=== PATIENT | female | born 1960 | race Caucasian/White ===

== ENCOUNTER 2017-05-31 11:12 | Inpatient (IN) | payer BC ==
[2017-05-31] MEDS ORDERED: Ipratropium 0.5MG/2.5ML NEB* 0.5 MG/2.5 ML NEB.SOLN INH ONE (11:26)
[2017-05-31] MEDS ORDERED: methylPREDNISolone 125 MG* 2 ML VIAL IV ONE (11:26)
[2017-05-31] MEDS ORDERED: Labetalol IV* 5 MG/ML 20 ML VIAL IV PUSH ONE ×3 (11:31→14:56)
[2017-05-31 11:59] LABS: ABS Basophils 0.1 10^3/ul (0-0.2); ABS Eosinophils 0.2 10^3/ul (0-0.6); ABS Lymphocytes 2.4 10^3/ul (1.0-4.8); ABS Monocytes 0.4 10^3/ul (0-0.8); ABS Neutrophils 5.1 10^3/ul (1.5-7.7); ABS Nucleated RBC 0 10^3/ul; Eosinophil % 2.4 % (0-6); Hematocrit 46 % (35-47); Hemoglobin 15.2 g/dl (12.0-16.0); Lymphocyte % 28.9 % (25-47); Mean Corpuscular HGB Conc 33 g/dl (31-36); Mean Corpuscular Hemoglobin 28 pg (27-31); Mean Corpuscular Volume 85 fL (80-97); Mean Platelet Volume 7 um3 (7.4-10.4); Nucleated Red Blood Cells % 0.2; Platelet Count 244 10^3/ul (150-450); Red Blood Count 5.37 10^6/ul (4.0-5.4); Red Cell Distribution Width 15 % (10.5-15); White Blood Count 8.2 10^3/ul (3.5-10.8)
--- NOTE | 2017-05-31 12:00 | RAD ---
INDICATION: Shortness of breath. COMPARISON: Comparison is made with a prior study from April 18, 2005. TECHNIQUE: A portable view of the chest was obtained. FINDINGS: Cardiac and mediastinal contours appear to be within normal limits. The lungs are hyperinflated and clear. No pleural effusion is seen. IMPRESSION: NO EVIDENCE FOR ACUTE DISEASE.
[2017-05-31 12:07] LABS: INR 0.94 (0.77-1.02)
[2017-05-31 12:14] LABS: EGFR Non-African American 87.4 (>60)
[2017-05-31] MEDS ORDERED: Iohexol 350* (CONTRAST) 500 ML MDV IV ONE (12:50)
[2017-05-31] MEDS ORDERED: Albuterol 2.5 MG/3 ML NEB.SOL* (0.083%) INH ONE (13:08)
--- NOTE | 2017-05-31 13:19 | RAD ---
Indication: Shortness of breath. Contrast: Administered 79.2 ml of OMNIPAQUE 350 mg/ml CTA of the chest was performed after IV contrast administration. Coronal and sagittal reconstructed images were obtained. Pulmonary arterial tree is well opacified. There are no evidence of filling defects to suggest pulmonary. The aorta demonstrates no aneurysmal dilatation. No evidence of aortic dissection is noted. The trachea and major bronchi appear patent. No pleural fluid is identified. Some atelectasis is noted in the lingula. No alveolar consolidation is noted. The axilla demonstrates no evidence of abnormal adenopathy. The visualized abdominal organs are unremarkable aside from hepatic steatosis. IMPRESSION: No definite evidence of pulmonary embolus is noted. No pulmonary lesions are noted. There is likely hepatic steatosis.
--- NOTE | 2017-05-31 13:39 | ED ---
Hollis Hernandez Gabriel, scribed for Jonnathan Frausto MD on 05/31/17 at 1121 . Shortness of Breath - HPI Summary HPI Summary: This patient is a 56 year old F presenting to [facility] with a chief complaint of SOB since 05/29/17. Patient reports nonproductive cough. Patient denies fever and LE edema. Patient states she has had a URI for a week. She states she was sent from her PCP after being told she was on the verge of having a stroke. She was diagnosed with borderline COPD a year ago and is currently trying to quit smoking and hasnt in 5 days. - History of Current Complaint Chief Complaint: EDShortnessOfBreath Time Seen by Provider: 05/31/17 11:20 Hx Obtained From: Patient Onset/Duration: Lasting Days - 2, Still Present Timing: Constant Current Severity: Moderate Dyspnea At: Rest Associated Signs & Symptoms: Negative - fever and edema, Cough (Nonproductive) - Allergy/Home Medications Allergies/Adverse Reactions: Allergies Allergy/AdvReac Type Severity Reaction Status Date / Time Penicillins Allergy Mild yeast Verified 05/31/17 11:18 infection Home Medications: Home Medications Levothyroxine TAB* [Synthroid TAB*] 175 mcg PO QAM 05/31/17 [History Confirmed 05/31/17] PMH/Surg Hx/FS Hx/Imm Hx Endocrine/Hematology History: Reports: Hx Thyroid Disease Cardiovascular History: Reports: Hx Hypertension Respiratory History: Reports: Hx Chronic Obstructive Pulmonary Disease (COPD) - verge of COPD EENT History: Denies: Hx Deafness Neurological History: Denies: Hx Dementia - Surgical History Surgery Procedure, Year, and Place: left wrist ganglion cyst removal. hysterectomy Infectious Disease History: Unable to Obtain/Confirm Infectious Disease History: Reports: Hx Hepatitis - HX HEP C - STATES CLEAR NOW Denies: History Other Infectious Disease, Traveled Outside the [place] in Last 30 Days - Family History Known Family History: Positive: Cardiac Disease - mother, Hypertension - mother , Respiratory Disease - father of COPD Negative: Diabetes, Renal Disease, Seizure Disorder, Blood Disorder - Social History Occupation: Employed Full-time Lives: With Family Alcohol Use: None Substance Use Type: Reports: None Smoking Status (MU): Current Every Day Smoker Type: Cigarettes Amount Used/How Often: 1 ppd Review of Systems Negative: Fever Positive: Shortness Of Breath, Cough Negative: Edema All Other Systems Reviewed And Are Negative: Yes Physical Exam Triage Information Reviewed: Yes Vital Signs On Initial Exam: Initial Vitals Temp Pulse Resp BP Pulse Ox 98.7 F 94 30 210/112 89 05/31/17 11:15 05/31/17 11:15 05/31/17 11:15 05/31/17 11:15 05/31/17 11:15 Vital Signs Reviewed: Yes Appearance: Positive: Well-Appearing, No Pain Distress Skin: Positive: Warm, Skin Color Reflects Adequate Perfusion Head/Face: Positive: Normal Head/Face Inspection Eyes: Positive: EOMI ENT: Positive: Normal ENT inspection Respiratory/Lung Sounds: Positive: Decreased Breath Sounds - both lung rankin. Negative: Rales, Stridor Cardiovascular: Positive: RRR. Negative: Murmur Abdomen Description: Positive: Nontender Musculoskeletal: Positive: Strength/ROM Intact. Negative: Edema Left, Edema Right Neurological: Positive: Sensory/Motor Intact, Alert, Oriented to Person Place, Time, CN Intact II-III, Normal Gait, Speech Normal Psychiatric: Positive: Normal - [place] Coma Scale Best Eye Response: 4 - Spontaneous Best Motor Response: 6 - Obeys Commands Best Verbal Response: 5 - Oriented Diagnostics - Vital Signs Vital Signs Temp Pulse Resp BP Pulse Ox 05/31/17 11:15 98.7 F 94 30 210/112 89 - Laboratory Lab Results: Lab Results 05/31/17 05/31/17 05/31/17 Range/Units 11:43 11:43 11:43 WBC 8.2 (3.5-10.8) 10^3/ul RBC 5.37 (4.0-5.4) 10^6/ul Hgb 15.2 (12.0-16.0) g/dl Hct 46 (35-47) % MCV 85 (80-97) fL MCH 28 (27-31) pg MCHC 33 (31-36) g/dl RDW 15 (10.5-15) % Plt Count 244 (150-450) 10^3/ul MPV 7 L (7.4-10.4) um3 Neut % (Auto) 62.3 (38-83) % Lymph % (Auto) 28.9 (25-47) % [place] % (Auto) 5.3 (1-9) % Eos % (Auto) 2.4 (0-6) % Baso % (Auto) 1.1 (0-2) % Absolute Neuts (auto) 5.1 (1.5-7.7) 10^3/ul Absolute Lymphs (auto) 2.4 (1.0-4.8) 10^3/ul Absolute Monos (auto) 0.4 (0-0.8) 10^3/ul Absolute Eos (auto) 0.2 (0-0.6) 10^3/ul Absolute Basos (auto) 0.1 (0-0.2) 10^3/ul Absolute Nucleated RBC 0 10^3/ul Nucleated RBC % 0.2 INR (Anticoag Therapy) (0.77-1.02) D-Dimer, Quantitative (Less Than 230) ng/mL Sodium 138 (133-145) mmol/L Potassium 4.1 (3.5-5.0) mmol/L Chloride 103 (101-111) mmol/L Carbon Dioxide 27 (22-32) mmol/L Anion Gap 8 (2-11) mmol/L BUN 11 (6-24) mg/dL Creatinine 0.69 (0.51-0.95) mg/dL Est GFR ( Amer) 112.4 (>60) Est GFR (Non-Af Amer) 87.4 (>60) BUN/Creatinine Ratio 15.9 (8-20) Glucose 97 (70-100) mg/dL Lactic Acid (0.5-2.0) mmol/L Calcium 9.6 (8.6-10.3) mg/dL Total Bilirubin 0.50 (0.2-1.0) mg/dL AST 21 (13-39) U/L ALT 29 (7-52) U/L Alkaline Phosphatase 109 H (34-104) U/L Troponin I 0.01 (<0.04) ng/mL B-Natriuretic Peptide 58 ( - 100) pg/mL Total Protein 7.7 (6.4-8.9) g/dL Albumin 4.1 (3.2-5.2) g/dL Globulin 3.6 (2-4) g/dL Albumin/Globulin Ratio 1.1 (1-3) 05/31/17 05/31/17 Range/Units 11:43 11:43 WBC (3.5-10.8) 10^3/ul RBC (4.0-5.4) 10^6/ul Hgb (12.0-16.0) g/dl Hct (35-47) % MCV (80-97) fL MCH (27-31) pg MCHC (31-36) g/dl RDW (10.5-15) % Plt Count (150-450) 10^3/ul MPV (7.4-10.4) um3 Neut % (Auto) (38-83) % Lymph % (Auto) (25-47) % Marathon % (Auto) (1-9) % Eos % (Auto) (0-6) % Baso % (Auto) (0-2) % Absolute Neuts (auto) (1.5-7.7) 10^3/ul Absolute Lymphs (auto) (1.0-4.8) 10^3/ul Absolute Monos (auto) (0-0.8) 10^3/ul Absolute Eos (auto) (0-0.6) 10^3/ul Absolute Basos (auto) (0-0.2) 10^3/ul Absolute Nucleated RBC 10^3/ul Nucleated RBC % INR (Anticoag Therapy) 0.94 (0.77-1.02) D-Dimer, Quantitative 383 H (Less Than 230) ng/mL Sodium (133-145) mmol/L Potassium (3.5-5.0) mmol/L Chloride (101-111) mmol/L Carbon Dioxide (22-32) mmol/L Anion Gap (2-11) mmol/L BUN (6-24) mg/dL Creatinine (0.51-0.95) mg/dL Est GFR ( Amer) (>60) Est GFR (Non-Af Amer) (>60) BUN/Creatinine Ratio (8-20) Glucose (70-100) mg/dL Lactic Acid 1.0 (0.5-2.0) mmol/L Calcium (8.6-10.3) mg/dL Total Bilirubin (0.2-1.0) mg/dL AST (13-39) U/L ALT (7-52) U/L Alkaline Phosphatase (34-104) U/L Troponin I (<0.04) ng/mL B-Natriuretic Peptide ( - 100) pg/mL Total Protein (6.4-8.9) g/dL Albumin (3.2-5.2) g/dL Globulin (2-4) g/dL Albumin/Globulin Ratio (1-3) Result Diagrams: 05/31/17 11:43 05/31/17 11:43 Lab Statement: Any lab studies that have been ordered have been reviewed, and results considered in the medical decision making process. - Radiology CXR Radiology Interpretation Completed By: Radiologist - No evidence for acute disease. ED physician has reviewed this report. - CT CTA Chest/ Thorax CT Interpretation Completed By: Radiologist - No definite evidence of pulmonary embolus is noted. No pulmonary lesions are noted. There is likely hepatic steatosis. ED physician has reviewed this report. - EKG 11:34 Cardiac Rate: Tachycardia EKG Rhythm: Sinus Tachycardia - at 104 BPM EKG Interpretation: No STEMI Re-Evaluation - Re-Evaluation First Eval Re-Evaluation Time: 13:10 Change: Improved Comment: She felt a little better after the neb, but then when walked to bathroom SOB again. Her bp improved with labetalol, but is back up in 190s again. Another neb and more labetalol ordered. Course/Dx - Course Course Of Treatment: 56 yr old with SOB, diminished breath sounds and hypertension. Neg Ct chest for PE. Admit for COPD and hypertensive urgency - Diagnoses Provider Diagnoses: COPD exacerbation, Hypertensive urgency - Physician Notifications Discussed Care of Patient With: Balbir Ross Time Discussed With Above Provider: 13:27 Instructed by Provider To: Admit As Observation - Critical Care Time Critical Care Time: 75-104 min Discharge - Discharge Plan Condition: Fair Disposition: ADMITTED TO [facility] Referrals: Robert Mckeon MD [Primary Care Provider] - The documentation as recorded by the Hollis gomez Gabriel accurately reflects the service I personally performed and the decisions made by , Jonnathan Frausto MD.
[2017-05-31] MEDS ORDERED: Mouth Piece, Nicotine* 1 EACH CARTRIDGE INH PRN (15:19)
[2017-05-31] MEDS ORDERED: Nicotine Inhaler* 10 MG AMP INH PRN (15:19)
[2017-05-31] MEDS ORDERED: hydrALAZINE IV* 20 MG/ML VIAL IV SLOW PU PRN ×2 (15:20→15:25)
[2017-05-31] MEDS ORDERED: Albuterol HFA INHALER* 8 gm MDI INH PRN (15:25)
[2017-05-31] MEDS ORDERED: Spiriva Inhaler DEVICE* 1 EACH DEVICE SCH (16:00)
[2017-05-31] MEDS ORDERED: Azithromycin IV(*) 500 MG in NS 0.9% 250 ML* 250 ML IVPB SCH (16:00)
[2017-05-31] MEDS: amLODIPine TAB* 5 MG PO SCH (17:59)
--- NOTE | 2017-05-31 19:49 | HP ---
CC: Robert Mckeon MD * HISTORY AND PHYSICAL: DATE OF ADMISSION: 05/31/17 PRIMARY CARE PROVIDER: Robert Mckeon MD ATTENDING PHYSICIAN: Pj oRss MD * (dictated by Christiane Milligan NP). CHIEF COMPLAINT: Shortness of breath for 2 days. HISTORY OF PRESENT ILLNESS: Ms. Arevalo is a 56-year-old female with a past medical history significant for COPD, hypertension, and a history of hepatitis C , who presented to the emergency room with complaints of 2 days of shortness of breath. The patient states that she has had upper respiratory symptoms for approximately a week with nasal congestion, runny nose and sneezing. She denies any fever, chills, chest pain. She reports a nonproductive cough. She reports shortness of breath at baseline, but feels that her shortness of breath has been worse with exertion recently. She denies any nausea, vomiting, diarrhea, urinary symptoms such as dysuria, urgency, or frequency. She states that she has been using her albuterol every 1 to 2 hours at home. Due to her increased use of albuterol, she decided to see her primary care provider before she ran out of albuterol. When she presented to her primary care provider, they told her to go to the emergency room for further evaluation. While in the emergency room, the patient received albuterol, Atrovent, labetalol IV x3 in addition to IV Solu-Medrol. She had a chest x-ray showing no evidence for acute disease. She was found to have an elevated D-dimer, had a CT of her chest showing no signs of a PE. She had an EKG showing a sinus tachycardia, rate of 104. Her labs were fairly unremarkable. She did have an ABG showing a pO2 of 76 and base excess of 3.6. The patient was noted to be significantly hypertensive while in the emergency room. Due to the patient's shortness of breath, the hospitalists were asked to evaluate the patient for admission. PAST MEDICAL HISTORY: 1. COPD. 2. Hypertension. 3. History of hepatitis C. 4. Hypothyroidism. PAST SURGICAL HISTORY: 1. Status post left wrist ganglion cyst removal. 2. Status post hysterectomy. HOME MEDICATIONS: Include: 1. Levothyroxine 175 mcg oral daily. 2. Albuterol HFA 2 puffs inhalation every 4 hours as needed for shortness of breath or wheeze. ALLERGIES: PENICILLIN. FAMILY HISTORY: The patient's parents, both had COPD and heart failure. She denies any family history of diabetes. Father with a history of lung cancer, a sister with a history of breast cancer, and a brother with a history of lymphoma. SOCIAL HISTORY: The patient reports smoking for the last 45 years, approximately 1 pack a day. She reports quitting 5 days ago. She reports occasional alcohol use. Denies recreational drug use. Her , Rudy Arevalo, will be her surrogate decision maker in the event she is unable to make decisions for herself. REVIEW OF SYSTEMS: I performed 11-point review of systems. All the pertinent positives and negatives are mentioned in the history of present illness. The remaining review of systems are negative. PHYSICAL EXAMINATION GENERAL APPEARANCE: The patient is alert, pleasant and appears to be in no acute distress. VITAL SIGNS: Temperature 98.7, heart rate 79, respiratory rate 14, O2 sat 94% on 2 L via nasal cannula, blood pressure 194/91. HEENT: Normocephalic, atraumatic. Pupils are equal and reactive to light. Extraocular movements are intact. NECK: Supple. RESPIRATORY: There is no accessory muscle use. The lungs are clear to auscultation with few expiratory wheezes noted. CARDIOVASCULAR: Regular rate and rhythm. S1 and S2 present. There are no murmurs, rubs or gallops heard. ABDOMEN: Soft, nontender, nondistended. There are bowel sounds present x4. EXTREMITIES: There is no lower extremity edema. DP and PT pulses are 2+ and symmetric. MUSCULOSKELETAL: There is no clubbing or cyanosis noted. The patient exhibits good strength in all extremities. NEUROLOGICAL: The patient is alert and oriented x4. Cranial nerves II through XII are grossly intact. PSYCHOLOGICAL: The patient is calm and cooperative. SKIN: There are no rashes or abnormalities seen. DIAGNOSTIC STUDIES/LABORATORY DATA: Sodium 138, potassium 4.1, chloride 103, CO2 of 27, BUN 11, creatinine 0.69, glucose 97. Alk phos 109. D-dimer 383. Troponin 0.01, 0.00. White blood cell count 8.2, hemoglobin 15.2, hematocrit 46 , platelet count 244,000. Influenza A and B, negative. ABG; pH 7.3, pCO2 of 43 , pO2 of 76, HCO3 of 27.6, O2 sat 97.4%, base excess 3.6. EKG shows a sinus tachycardia and a rate of 104. There are no previous EKGs for comparison. There are no acute signs of ischemia. Chest x-ray from today. Radiologist's impression: No evidence for acute disease. Chest, thoracic CTA from today. Radiologist's impression: No definite evidence of pulmonary embolus is noted. No pulmonary lesions are noted. There is likely hepatosteatosis. IMPRESSION: Ms. Arevalo is a 56-year-old female with past medical history significant for hypertension, hypothyroidism, and history of hepatitis C, who presented to the emergency room with complaints of shortness of breath for 2 days. She will be admitted as an observation for chronic obstructive pulmonary disease exacerbation and hypertension. ASSESSMENT/PLAN: 1. Chronic obstructive pulmonary disease exacerbation. The patient has expiratory wheezing on exam. Chest CTA shows no pulmonary embolism. I suspect her shortness of breath is secondary to chronic obstructive pulmonary disease exacerbation. She has been encouraged to quit smoking. She is not on any maintenance inhalers at home. I have started her on Dulera and Spiriva. In addition to the inhalers, the patient will have around the clock DuoNeb while awake in addition to be continued on prednisone. I will also give her mono- antibiotic therapy with azithromycin. She has been encouraged to stop smoking. 2. Hypertension. The patient has had significant hypertension in the emergency room with systolic blood pressures in the 90s to 200s. She received labetalol in the emergency room. I am going to start her on amlodipine and give her a dose now followed by another dose later today if she continues to be significantly elevated and also give her hydralazine as needed for systolic blood pressures greater than 185 and diastolic blood pressures greater than 110. I suspect the patient's hypertension is secondary to taking herself off her antihypertensives approximately a year ago when she felt that she no longer needed them. 3. Hypothyroidism. The patient will be continued on her home levothyroxine. 4. Fluids, electrolytes and nutrition. The patient will be on a heart-healthy diet. 5. Code status. Full code. 6. DVT prophylaxis. The patient is at high risk and will be on subcu heparin. 7. Disposition. Observation. TIME SPENT: Time for this admission was approximately 60 minutes, greater than half of that was spent with the patient discussing medications, past medical history and the events leading up to her arrival today and performing a physical examination. The case has been reviewed with the attending, Dr. Pj Ross, who agrees with the plan of care. Reviewed by DARLENE ANDREWS 06/07/17 1808 [id number]/[facility] #: [id number] MTDD
[2017-05-31] MEDS: Acetaminophen TAB* 325 MG PO PRN (19:59)
[2017-05-31] MEDS: Albuterol/Ipratropium NEB.SOL* Albuterol 2.5 MG/Ipratropium 0.5 MG 3 ML INH SCH (20:21)
[2017-05-31] MEDS: Mometasone/Formoter 100/5 MDI INH SCH (20:21)
[2017-05-31] MEDS: Heparin VIAL(*) 5000 UNITS/ML VIAL (FIVE THOUSAND) SUBCUT SCH (22:04)
[2017-06-01] MEDS: Albuterol/Ipratropium NEB.SOL* Albuterol 2.5 MG/Ipratropium 0.5 MG 3 ML INH SCH ×4 (02:56→19:24)
[2017-06-01] MEDS: Acetaminophen TAB* 325 MG PO PRN (03:44)
[2017-06-01] MEDS: Levothyroxine TAB* 175 MCG TAB PO SCH (05:49)
[2017-06-01] MEDS: Heparin VIAL(*) 5000 UNITS/ML VIAL (FIVE THOUSAND) SUBCUT SCH ×3 (05:50→22:12)
[2017-06-01] MEDS ORDERED: amLODIPine TAB* 5 MG PO ONE (08:54)
[2017-06-01] MEDS ORDERED: Ibuprofen TAB* 600 MG PO ONE (08:54)
[2017-06-01] MEDS: amLODIPine TAB* 5 MG PO SCH (09:09)
[2017-06-01] MEDS: predniSONE TAB* 50 MG PO SCH (09:09)
[2017-06-01] MEDS ORDERED: Albuterol 2.5 MG/3 ML NEB.SOL* (0.083%) INH PRN (09:29)
[2017-06-01] MEDS: Tiotropium CAP.INH* CAP.INH/18 MCG (USE ORDER SET !) INH SCH (09:50)
[2017-06-01] MEDS: Mometasone/Formoter 100/5 MDI INH SCH ×2 (09:50→19:24)
[2017-06-01] MEDS ORDERED: Lisinopril TAB* 10 MG PO SCH (10:00)
[2017-06-01] MEDS ORDERED: hydrALAZINE IV* 20 MG/ML VIAL IV SLOW PU PRN (11:48)
--- NOTE | 2017-06-01 14:05 | PN ---
Subjective Date of Service: 06/01/17 Interval History: Patient has continusing and worsening SOB overnight. Relief with inhalers. Patient reports audible wheezing which is improved with inhalers. Patient recently had oxygen flow rate increased. Patient has a DUPREE which she rates as 10/ 10 and frontal which was unresponsive to tylenol but responded to ibuprofen. Patient has continued URI symptoms but denied F/C, N/V, abdominal Pain, Diarrhea , constipation CP, Dysuria, back pain, or other pain. Family History: Unchanged from Admission Social History: Unchanged from Admission Past Medical History: Unchanged from Admission Objective Active Medications: Acetaminophen (Tylenol Tab*) 650 mg PO Q6H PRN PRN Reason: FEVER/PAIN Last Admin: 06/01/17 03:44 Dose: 650 mg Albuterol (Ventolin 2.5 Mg/3 Ml Neb.Shana*) 2.5 mg INH Q4H PRN PRN Reason: SOB/WHEEZING Albuterol/Ipratropium (Duoneb (Albuterol 2.5 Mg/Ipratropium 0.5 Mg)) 1 neb INH [id number] AWAKE [facility] Last Admin: 06/01/17 13:27 Dose: 1 neb Device (Nicotine Mouth Piece*) 1 each INH .USE WITH NICOTROL PRN PRN Reason: CRAVING Device (Tiotropium Inhaler Device*) 1 each .SEE ORDER .USE w/ SPIRIVA CAPS [facility] Heparin Sodium (Porcine) (Heparin Vial(*)) 5,000 units SUBCUT Q8HR [facility] Last Admin: 06/01/17 13:56 Dose: 5,000 units Hydralazine HCl (Apresoline Iv*) 10 mg IV SLOW PU Q6H PRN PRN Reason: BLOOD PRESSURE Last Admin: 06/01/17 12:15 Dose: 10 mg Azithromycin 500 mg/ Sodium (Chloride) 250 mls @ 250 mls/hr IVPB Q24H [facility] Last Admin: 05/31/17 18:00 Dose: 250 mls/hr Levothyroxine Sodium (Synthroid Tab*) 175 mcg PO 0600 [facility] Last Admin: 06/01/17 05:49 Dose: 175 mcg Lisinopril (Prinivil Tab*) 10 mg PO DAILY [facility] Last Admin: 06/01/17 10:33 Dose: 10 mg Mometasone Furoate/Formoterol Fumar (Dulera 100/5 Mdi*) 2 puff INH BID [facility] Last Admin: 06/01/17 09:50 Dose: Not Given Nicotine (Nicotine Inhaler*) 10 mg INH Q2H PRN PRN Reason: CRAVING Prednisone (Deltasone Tab*) 50 mg PO DAILY WITH MEAL [facility] Last Admin: 06/01/17 09:09 Dose: 50 mg Tiotropium Salley (Spiriva Cap.Inh*) 1 cap INH DAILY [facility] Last Admin: 06/01/17 09:50 Dose: Not Given Vital Signs - 8 hr 06/01/17 11:46 Temperature 97.9 F Pulse Rate 80 Respiratory 18 Rate Blood Pressure 178/73 (mmHg) O2 Sat by Pulse 93 Oximetry Oxygen Devices in Use Now: Nasal Cannula - 2L Appearance: Patient is a 56yo female who appears stated age and is sitting in the bed in [facility]. Eyes: No Scleral Icterus, PERRLA Ears/Nose/Mouth/Throat: NL Teeth, Lips, Gums, Clear Oropharnyx, Mucous Membranes Moist Neck: NL Appearance and Movements; NL JVP, Trachea Midline Respiratory: Symmetrical Chest Expansion and Respiratory Effort, - - Expiratory wheezes and prolonged expiratory phase throughout. Cardiovascular: NL Sounds; No Murmurs; No JVD, RRR, No Edema Abdominal: No Hepatosplenomegaly, - - BS present and normoactive. Non-tender. Moderately distended, no guarding. Lymphatic: No Cervical Adenopathy Extremities: No Edema, No Clubbing, Cyanosis Skin: No Rash or Ulcers, No Nodules or Sclerosis Neurological: Alert and Oriented x 3, NL Sensation, NL Muscle Strength and Tone , - - CN II-XII intact. Result Diagrams: 05/31/17 11:43 05/31/17 11:43 Additional Lab and Data: Lab Results Assess/Plan/Problems-Billing Assessment: Patient is a 56yo female with a PMH significant for COPD, HTN, and hepatitis C who presents with a COPD exacerbation and URI symptoms. Patient is admitted inpatient and has increasing O2 requirements from yesterday. - Patient Problems (1) COPD exacerbation Current Visit: Yes Status: Acute Code(s): J44.1 - CHRONIC OBSTRUCTIVE PULMONARY DISEASE W (ACUTE) EXACERBATION SNOMED Code(s): 704441778 Comment: Significant wheezing on exam, on 3L O2 which is increased from yesterday. URI symptoms, on no home inhalers. No known previous diagnosis of COPD. Quit smoking on 05/26, not craving or interested in pharmacologic aides. Continue prednisone, inhalers, and Azithromycin. Wean O2 as tolerated. (2) Hypertensive urgency Current Visit: Yes Status: Acute Code(s): I16.0 - HYPERTENSIVE URGENCY SNOMED Code(s): 207050793 Comment: BP up to 210/110 at admission. Started on amlodipine but got headaches. Started on Lisinopril 20mg PO daily. Mild improvement. Hydralazine PRN, will increase medications as needed. Previously on antihypertenive therapy but self- discontinued. (3) Headache Current Visit: Yes Status: Acute Code(s): R51 - HEADACHE SNOMED Code(s): 20154158 Comment: 02/28 and frontal, possibly due to amlodipine. Changed to Lisinopril, response to Ibuprofen x1. Tylenol standing. Currently asymptomatic. (4) URI (upper respiratory infection) Current Visit: Yes Status: Acute Code(s): J06.9 - ACUTE UPPER RESPIRATORY INFECTION, UNSPECIFIED SNOMED Code(s): 66582681 Comment: Rhinorrhea, sore throat, nasal congestion. No muscle aches or fevers. Not likely Flu, probably driving COPD exacerbation. Supportive care. (5) Full code status Current Visit: Yes Status: Acute Code(s): Z78.9 - OTHER SPECIFIED HEALTH STATUS SNOMED Code(s): 738291438 (6) DVT prophylaxis Current Visit: Yes Status: Acute Code(s): HPE7937 - SNOMED Code(s): 925247910 Comment: Heparin subQ. Status and Disposition: Patient is admitted inpatient. Will discharge when medically stable.
[2017-06-01] MEDS ORDERED: amLODIPine TAB* 5 MG PO SCH (16:00)
[2017-06-01] MEDS ORDERED: Azithromycin TAB* 250 MG PO SCH (16:00)
[2017-06-02] MEDS: Albuterol/Ipratropium NEB.SOL* Albuterol 2.5 MG/Ipratropium 0.5 MG 3 ML INH SCH ×3 (01:58→13:56)
[2017-06-02] MEDS: Levothyroxine TAB* 175 MCG TAB PO SCH (05:57)
[2017-06-02] MEDS: Heparin VIAL(*) 5000 UNITS/ML VIAL (FIVE THOUSAND) SUBCUT SCH ×2 (05:57→14:22)
[2017-06-02] MEDS: Tiotropium CAP.INH* CAP.INH/18 MCG (USE ORDER SET !) INH SCH (07:38)
[2017-06-02] MEDS: Mometasone/Formoter 100/5 MDI INH SCH (07:38)
[2017-06-02] MEDS ORDERED: Lisinopril TAB* 10 MG PO SCH (09:00)
[2017-06-02 09:04] LABS: ABS Basophils 0.1 10^3/ul (0-0.2); ABS Eosinophils 0 10^3/ul (0-0.6); ABS Neutrophils 9.6 10^3/ul (1.5-7.7); ABS Nucleated RBC 0 10^3/ul; Eosinophil % 0.3 % (0-6); Hematocrit 43 % (35-47); Hemoglobin 14.1 g/dl (12.0-16.0); Lymphocyte % 27.3 % (25-47); Mean Corpuscular HGB Conc 33 g/dl (31-36); Mean Corpuscular Hemoglobin 28 pg (27-31); Mean Corpuscular Volume 87 fL (80-97); Mean Platelet Volume 7 um3 (7.4-10.4); Nucleated Red Blood Cells % 0.1; Platelet Count 296 10^3/ul (150-450); Red Blood Count 4.99 10^6/ul (4.0-5.4); Red Cell Distribution Width 16 % (10.5-15); White Blood Count 14.8 10^3/ul (3.5-10.8)
[2017-06-02 09:11] LABS: EGFR Non-African American 75.9 (>60)
[2017-06-02] MEDS: predniSONE TAB* 50 MG PO SCH (09:54)
[2017-06-02 12:40] VITALS: BP 156/71
--- NOTE | 2017-06-03 16:50 | DS ---
CC: Dr. Robert Mckeon * DISCHARGE SUMMARY: DATE OF ADMISSION: 05/31/17 DATE OF DISCHARGE: 06/02/17 PRIMARY CARE PROVIDER: Dr. Robert Mckeon. ATTENDING WHILE IN THE HOSPITAL: Dr. Latosha Aldana.* (DICTATED BY [facility]) TIPPLE TENDER PROVIDERS: None. PRIMARY DISCHARGE DIAGNOSES: 1. Chronic obstructive pulmonary disease exacerbation. 2. Upper respiratory infection. 3. Hypertensive urgency. SECONDARY DISCHARGE DIAGNOSES: 1. History of hepatitis C. 2. Hypothyroidism. STUDIES DONE IN THE HOSPITAL: Echocardiogram from 02/26/18 shows sinus tachycardia, rate 104, QTc 47, no ST segment abnormalities, normal axis, no enlargement or hypertrophy, no other abnormalities. Chest x-ray from 05/31/17, read as no evidence for acute disease. Chest thorax CTA from 05/31/17, read as definite evidence for pulmonary embolism, no pulmonary lesions were noted. There is likely hepatic steatosis. MEDICATIONS AT DISCHARGE: 1. Albuterol inhaler 2 puffs inhalation q.4 hours as needed. 2. Levothyroxine 175 mcg p.o. q.a.m. 3. Tylenol 600 mg p.o. q.6 hours as needed. 4. Azithromycin 250 mg p.o. q.p.m. x3. 5. Lisinopril 40 mg p.o. daily. 6. Dulera 2 puffs inhalation b.i.d. 7. Prednisone 50 mg p.o. daily x3. 8. Spiriva cap 18 mcg 1 cap inhalation daily. NEW MEDICATIONS AT DISCHARGE: 1. Tylenol. 2. Zithromax. 3. Lisinopril. 4. Dulera. 5. Prednisone. 6. Spiriva. MEDICATIONS DISCONTINUED AT DISCHARGE: None. HOSPITAL COURSE: This is a brief summary on patient's presentation. For more details, please see the history and physical from Christiane Carpenter NP, from 05/31/17. In brief, the patient is a 56-year-old female with past medical history significant for the above, presented to the emergency room with complaints of 2 days of shortness of breath, upper respiratory symptoms including nasal congestion, runny nose and sneezing. The patient was found to be hypoxic and negative CT scan. She has an elevated D-dimer. The patient was started on oxygen and admitted to the hospital. The patient was given amlodipine, which gave her a headache. The patient also had drowsing several times due to blood pressures greater than 105 diastolic. The patient was started on prednisone, Dulera, Spiriva and DuoNeb treatment as well as azithromycin. For a COPD exacerbation, the patient had no formal diagnosis of COPD before this point, though she had a significant smoking history. The patient improved overnight from 05/31/17 to 06/01/17, though she continued to be hypertensive and hypoxic needing 3 L of oxygen to keep her sat about 90. The patient was switched to lisinopril due to headaches from amlodipine with response in her blood pressure. The patient had no other complaints. The patient's upper respiratory symptoms were decreasing at this point. The patient had no events overnight. The patient felt significantly better on 06/02. The patient was able to be weaned down to room air during interview; however, while ambulating patient's saturations dropped to 84, needed 2 L to be brought back above 90. The patient was discharged home on azithromycin, prednisone, and oxygen therapy, to follow up with her primary care provider within 1 week. PHYSICAL EXAM ON DAY OF DISCHARGE: General: The patient is a 56-year-old female who appears her stated age and is sitting comfortably in bed, in no acute distress. Vital signs at the time of discharge: Temperature 98.1, pulse rate 76, respiratory rate 18, oxygen saturation 91% on 3 L of oxygen, blood pressure 156/71. HEENT: Head normocephalic, atraumatic. Sclerae anicteric. No conjunctival injection. Nasal mucosa moist. No mucosal inflammation. Oral mucosa moist. No pharyngeal erythema, discharge or exudate. Neck: Supple, nontender. No lymphadenopathy. No carotid bruit auscultated. Cardiac: Regular rate and rhythm. No clicks, murmurs, gallops, rubs. Pulses 2+ in bilateral dorsalis pedis, posterior tibialis, and radial areas. No edema noted in the bilateral lower extremities. Respiratory: Slight end-expiratory wheezes heard in all lung rankin, significantly improved from previous exam. Good air exchange bilaterally, diminished throughout. Prolonged expiratory phase. Abdomen: Soft, nontender, distension which is similar to previous exams, without rigidity or guarding. No hepatosplenomegaly. No abdominal bruits auscultated. Skin: Clean, dry and intact. No rash. Neuro: Cranial nerves II through XII grossly intact. No focal deficits. Alert and oriented x3. Psychiatric: Pleasant, cooperative. LABORATORY DATA: On day of discharge, white blood cell count 14.8, hemoglobin 14.4, platelet count 276. Sodium 138, potassium 3.8, chloride 102, carbon dioxide 29, anion gap 7, BUN 17, creatinine 0.78, glucose 87, calcium 9.5, magnesium 2.0. Other laboratory data of note from admission, influenza A and B negative, blood gas with pO2 76, bases excess of 3.6, D-dimer of 383. DISCHARGE PLAN: The patient will be discharged to home on the above treatment with inhaler therapy, prednisone, azithromycin. The patient should use oxygen as needed and pulse oximeter to see if she can wean herself down off of her oxygen. The patient should follow up with her primary care provider within 1 week for general medical management and to assess the appropriateness of her current treatment for COPD and deescalating therapy as appropriate. The patient should monitor her blood pressure as well and call her provider for readings persistently elevated above 150 systolic. The patient should engage in activities as tolerated and have a regular unrestricted diet. TIME SPENT: Approximately 60 minutes were spent on the discharge, 30 of which were spent [id number] with the patient obtaining history and physical and discussing treatment plan. T[facility] [id number]/[facility] #: [id number] MTDD
== END 2017-06-02 15:46 | disposition home or self-care (01) | DRG 140 ==
LOC: ED 11:12 → MEDTELE 15:02 → MED 17:23 → MERGE 06-01 10:40 → OBSVTOIN 06-01 10:40 → MED 06-01 22:46
PROVIDERS: ADMIT Internal Medicine; ATTEND Internal Medicine
DX: J44.1 Chronic obstructive pulmonary disease with (acute) exacerbation (principal); B19.20 Unspecified viral hepatitis C without hepatic coma; J06.9 Acute upper respiratory infection, unspecified; I16.0 Hypertensive urgency; E03.9 Hypothyroidism, unspecified; F17.210 Nicotine dependence, cigarettes, uncomplicated; R40.2252 Coma scale, best verbal response, oriented, at arrival to emergency department; R40.2362 Coma scale, best motor response, obeys commands, at arrival to emergency department; R40.2142 Coma scale, eyes open, spontaneous, at arrival to emergency department; I10 Essential (primary) hypertension; R51 Headache; Z80.1 Family history of malignant neoplasm of trachea, bronchus and lung; Z80.3 Family history of malignant neoplasm of breast; Z80.7 Family history of other malignant neoplasms of lymphoid, hematopoietic and related tissues; Z88.0 Allergy status to penicillin; Z90.710 Acquired absence of both cervix and uterus; Z82.49 Family history of ischemic heart disease and other diseases of the circulatory system; Z83.6 Family history of other diseases of the respiratory system; Z72.89 Other problems related to lifestyle
CPT/HCPCS: 36415; 36600; 71045; 71275; 80048; 80053; 82803; 83605; 83735; 83880; 84484; 85025; 85379; 85610; 87040; 87502; 93005; 94640; 94760; 96365; 99285; 99406; A9270-GY; G0378; J0360; J0456; J1644; J2930; J7512; J7644; Q9967